=== PATIENT | male | born 1935 | race Caucasian/White ===

== ENCOUNTER → 2018-05-20 13:12 | Outpatient (CLI) | payer OTHER, SELFPAY ==
[2018-05-20 14:09] LABS: Add Manual Diff / Slide Review NO; Basophils Percent Auto 0.9 % (0-2); Hemoglobin 13.6 g/dL (13.5-17.5); Lymphocytes Percent Auto 32.6 % (25-40); Mean Corpuscular HGB Conc 34.1 % (30-36); Mean Corpuscular Hemoglobin 33.4 PG (26-34); Mean Corpuscular Volume 97.8 fL (80-100); Monocytes Percent Auto 8.1 % (3-14); Neutrophils Absolute Auto 2400 /uL (3000-5900); Neutrophils Percent Auto 55.4 % (50-75); Platelet Count 276 X10^3/uL (150-400); Red Blood Cell Count 4.09 X10^6/uL (4.5-5.9); Red Cell Distribution Width 13.9 % (11.6-14.8); White Blood Cell Count 4.4 X10^3/uL (4.5-11.0)
[2018-05-20 14:54] LABS: BUN Creatinine Ratio 17.8 (6-22); Blood Urea Nitrogen 16 mg/dL (9-20); Calcium 9.9 mg/dL (8.4-10.2); Carbon Dioxide 29 mmol/L (22-32); Chloride 95 mmol/L (98-107); Estimated Glomerular Filt Rate > 60.0 mL/min (>60); Glucose 96 mg/dL (80-110); HEMOLYSIS < 15 (0-50); Potassium 3.9 mmol/L (3.4-5.1); Sodium 135 mmol/L (137-145)
== END ==
PROVIDERS: Visit Provider Family Medicine
DX: D47.2 Monoclonal gammopathy (principal); I10 Essential (primary) hypertension
CPT/HCPCS: 80048; 85025

== ENCOUNTER → 2018-07-21 12:26 | Oncology outpatient (ONC) | payer OTHER, SELFPAY ==
[2018-07-21 13:34] VITALS: BP 151/64; PULSE 70; RESP 18; TEMP 36.6; O2SAT 97
--- NOTE | 2018-07-21 13:56 | ONC.CONS ---
History of Present Illness - Data of Consult Patient: new to practice Consult date: 07/21/18 Requesting Physician: Naomi Santo MD Primary Care Provider: Naomi Santo MD - Consult Narrative Reason for consult: MGUS Narrative: Mrs. Swathi Caldwell is an 83-year-old female. 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 About in March of 2015 patient complained of clavicle pain. A complete bone survey was performed on 03/19/2015 and there were no lytic lesions identified except degenerative changes in the cervical, thoracic, and lumbar spine. Patient recalled that she underwent bone marrow aspiration and biopsy, and ?was completely normal.? Thereafter patient has been undergoing regular laboratory tests and never has been diagnosed with multiple myeloma. On , SPEP showed M-spike of 0.11 g/dl. On 02/12/2017 SPEP showed no M-spikes. On 07/16/2017 M-spike 0.1 g/dl, and was identified as IgG [place]. In 2018, the patient moved to [facility] to take care of her sister. She was seen by oncodlogist Calvin Jimenes. On 11/30/2017, repeat SPEP showed M-spike of 0.1 g/dl. On 11/30/2017, the patient underwent bone survey. Of note it is not compared with any prior bone survey. The survey showed calvarial osteolytic lesions suggesting multiple myeloma or variant, severe degenerative changes of the cervical, thoracic and lumbar segments of the spine, severe osteoarthritis of both wrists and heavy atherosclerotic calcification of the thoracic aorta. On 12/13/2017, she underwent BMA/Bx which showed no morphologic or immunohistochemical evidence of involvement by lymphoma or a plasma cell neoplasm. It was reported as a normal cellular bone marrow with trilineage hematopoiesis. On 01/05/2018, she underwent PET scan which was interpreted as normal. The skull lytic lesions on whole-body x-ray survey was not picked up by the PET/CT. Clinically patient reports that 60% of the time, she feels very good. However sometimes she does feel abnormally tired with some bone aches. She is using ibuprofen. Patient denies any chest pain or shortness of breath, denies any abdominal pain diarrhea or constipation. Patient reports pain?: Yes Home Medications and Allergies Home Medications Medication Instructions Recorded Confirmed Type estradiol 0.5 mg tablet 0.5 mg PO DAILY 05/09/18 05/09/18 History fluocinonide 0.05 % topical cream 1 applictn TOP BID 05/09/18 05/09/18 History fluticasone 50 mcg/actuation nasal 2 spray NASAL DAILY 05/09/18 05/09/18 History spray,suspension hydrochlorothiazide 25 mg tablet 25 mg PO DAILY 05/09/18 05/09/18 History lisinopril 10 mg tablet 10 mg PO DAILY 05/09/18 05/09/18 History trospium ER 60 mg capsule,extended 60 mg PO QAM #90 cap 06/21/18 Rx release 24 hr imipramine 10 mg tablet 10 mg PO DAILY #90 tab 07/07/18 Rx levothyroxine 75 mcg tablet 75 mcg PO DAILY #90 tab 07/18/18 Rx Allergies Allergy/AdvReac Type Severity Reaction Status Date / Time Sulfa (Sulfonamide AdvReac Mild hives Verified 05/09/18 10:04 Antibiotics) opiods AdvReac Mild itching Uncoded 05/09/18 10:05 Medical History - Medical, Surgical, Family History Medical History: Medical History (Last Updated 05/11/18 @ 13:45 by Naomi Snato MD) Aortic calcification (Chronic) DNR (do not resuscitate) (Chronic) Vitiligo (Inactive) Urinary incontinence (Chronic) Essential hypertension (Chronic) 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 Surgical History: Surgical History (Last Updated 05/11/18 @ 13:45 by Naomi Santo MD) S/P partial thyroidectomy - Social History Smoking Status: Former smoker Review of Systems - Patient Self-Reported Symptoms SR Constitution: Fatigue/Malaise SR Musculoskeletal issues: Joint pain or swelling, Muscle pain or cramps, Back or neck pain, Bone pain All systems PM: reviewed and no additional remarkable complaints except as stated Exam Vital signs: Temp 97.9 F 07/21/18 13:34 Pulse 70 07/21/18 13:34 Resp 18 07/21/18 13:34 BP 151/64 H 07/21/18 13:34 Pulse Ox 97 07/21/18 13:34 ECOG 1 Narrative: Constitutional: Well developed, well nourished, not in any acute respiratory distress, average body habitus, well groomed, pleasant and cooperative. HEENT: Normocephalic atraumatic. Extraocular muscle movement intact. Pupils are round, equal and reactive to light and accommodations. Anicteric sclera. No hearing difficulty; Oral mucus membrane moist and without ulcers. Neck: Supple, symmetrical, and tracheal midline; No palpable thyromegaly and no palpable lymph nodes. Respiratory: No use of accessory muscles. Clear to auscultation, and no wheezes or rales or rubs. Cardiovascular: Regular rate and rhythm, S1 and S2 normal, no murmurs gallops or rubs. No JVD. No pitting edema of lower extremities. Abdomen: Soft, nontender, non-distended, bowel sounds normal, no palpable organomegaly, no hernia, no palpable masses. Lower extremities: No palpable pedal edema. Lymphatic: no palpable lymph nodes in the neck, axillae, or groins. Musculoskeletal: normal gait and station, no clubbing, no cyanosis, no pitting edema. Skin: no rashes, no ulcers, no petechiae Neurological: Awake and alert and oriented x3. CN II-XII grossly intact. No focal motor or sensory deficit. Psychiatric: Good judgment, good insight, normal affect, normal thought process, cooperative, no depression, no anxiety. Results - Labs None for review. Assessment and Plan (1) MGUS (monoclonal gammopathy of unknown significance) Patient has a very low level serum monoclonal protein IgG kappa. At times the M-spike level was below detection limit. Her recent bone marrow aspiration biopsy on 12/13/2017 was completely normal. No evidence of hypercalcemia or serum creatinine changes or anemia etc. I will continue current active surveillance. The most recent lab results was about 3 months ago. I will repeat the CBC CMP and multiple myeloma panel in 3 months. We will see the patient after the blood work.
--- NOTE | 2018-07-21 13:59 | P.CONONC_ITS ---
History of Present Illness - Data of Consult Patient: new to practice Consult date: 07/21/18 Requesting Physician: Naomi Santo MD Primary Care Provider: Naomi Santo MD - Consult Narrative Reason for consult: MGUS Narrative: Mrs. Swathi Caldwell is an 83-year-old female. 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 About in March of 2015 patient complained of clavicle pain. A complete bone survey was performed on 03/19/2015 and there were no lytic lesions identified except degenerative changes in the cervical, thoracic, and lumbar spine. Patient recalled that she underwent bone marrow aspiration and biopsy, and ?was completely normal.? Thereafter patient has been undergoing regular laboratory tests and never has been diagnosed with multiple myeloma. On , SPEP showed M-spike of 0.11 g/dl. On 02/12/2017 SPEP showed no M- spikes. On 07/16/2017 M-spike 0.1 g/dl, and was identified as IgG [place]. In 2018, the patient moved to [facility] to take care of her sister. She was seen by oncodlogist Calvin Jimenes. On 11/30/2017, repeat SPEP showed M-spike of 0.1 g/dl. On 11/30/2017, the patient underwent bone survey. Of note it is not compared with any prior bone survey. The survey showed calvarial osteolytic lesions suggesting multiple myeloma or variant, severe degenerative changes of the cervical, thoracic and lumbar segments of the spine , severe osteoarthritis of both wrists and heavy atherosclerotic calcification of the thoracic aorta. On 12/13/2017, she underwent BMA/Bx which showed no morphologic or immunohistochemical evidence of involvement by lymphoma or a plasma cell neoplasm. It was reported as a normal cellular bone marrow with trilineage hematopoiesis. On 01/05/2018, she underwent PET scan which was interpreted as normal. The skull lytic lesions on whole-body x-ray survey was not picked up by the PET/CT. Clinically patient reports that 60% of the time, she feels very good. However sometimes she does feel abnormally tired with some bone aches. She is using ibuprofen. Patient denies any chest pain or shortness of breath, denies any abdominal pain diarrhea or constipation. Patient reports pain?: Yes Home Medications and Allergies Home Medications Medication Instructions Recorded Confirmed Type estradiol 0.5 mg tablet 0.5 mg PO DAILY 05/09/18 05/09/18 History fluocinonide 0.05 % topical cream 1 applictn TOP BID 05/09/18 05/09/18 History fluticasone 50 mcg/actuation nasal 2 spray NASAL DAILY 05/09/18 05/09/18 History spray,suspension hydrochlorothiazide 25 mg tablet 25 mg PO DAILY 05/09/18 05/09/18 History lisinopril 10 mg tablet 10 mg PO DAILY 05/09/18 05/09/18 History trospium ER 60 mg capsule,extended 60 mg PO QAM #90 cap 06/21/18 Rx release 24 hr imipramine 10 mg tablet 10 mg PO DAILY #90 tab 07/07/18 Rx levothyroxine 75 mcg tablet 75 mcg PO DAILY #90 tab 07/18/18 Rx Allergies Allergy/AdvReac Type Severity Reaction Status Date / Time Sulfa (Sulfonamide AdvReac Mild hives Verified 05/09/18 10:04 Antibiotics) opiods AdvReac Mild itching Uncoded 05/09/18 10:05 Medical History - Medical, Surgical, Family History Medical History: Medical History (Last Updated 05/11/18 @ 13:45 by Naomi Santo MD) Aortic calcification (Chronic) DNR (do not resuscitate) (Chronic) Vitiligo (Inactive) Urinary incontinence (Chronic) Essential hypertension (Chronic) 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 Surgical History: Surgical History (Last Updated 05/11/18 @ 13:45 by Naomi Santo MD) S/P partial thyroidectomy - Social History Smoking Status: Former smoker Review of Systems - Patient Self-Reported Symptoms SR Constitution: Fatigue/Malaise SR Musculoskeletal issues: Joint pain or swelling, Muscle pain or cramps, Back or neck pain, Bone pain All systems PM: reviewed and no additional remarkable complaints except as stated Exam Vital signs: 3 Temp 97.9 F 07/21/18 13:34 Pulse 70 07/21/18 13:34 Resp 18 07/21/18 13:34 BP 151/64 H 07/21/18 13:34 Pulse Ox 97 07/21/18 13:34 ECOG 1 Narrative: Constitutional: Well developed, well nourished, not in any acute respiratory distress, average body habitus, well groomed, pleasant and cooperative. HEENT: Normocephalic atraumatic. Extraocular muscle movement intact. Pupils are round, equal and reactive to light and accommodations. Anicteric sclera. No hearing difficulty; Oral mucus membrane moist and without ulcers. Neck: Supple, symmetrical, and tracheal midline; No palpable thyromegaly and no palpable lymph nodes. Respiratory: No use of accessory muscles. Clear to auscultation, and no wheezes or rales or rubs. Cardiovascular: Regular rate and rhythm, S1 and S2 normal, no murmurs gallops or rubs. No JVD. No pitting edema of lower extremities. Abdomen: Soft, nontender, non-distended, bowel sounds normal, no palpable organomegaly, no hernia, no palpable masses. Lower extremities: No palpable pedal edema. Lymphatic: no palpable lymph nodes in the neck, axillae, or groins. Musculoskeletal: normal gait and station, no clubbing, no cyanosis, no pitting edema. Skin: no rashes, no ulcers, no petechiae Neurological: Awake and alert and oriented x3. CN II-XII grossly intact. No focal motor or sensory deficit. Psychiatric: Good judgment, good insight, normal affect, normal thought process , cooperative, no depression, no anxiety. Results - Labs None for review. Assessment and Plan (1) MGUS (monoclonal gammopathy of unknown significance) Patient has a very low level serum monoclonal protein IgG kappa. At times the M -spike level was below detection limit. Her recent bone marrow aspiration biopsy on 12/13/2017 was completely normal. No evidence of hypercalcemia or serum creatinine changes or anemia etc. I will continue current active surveillance. The most recent lab results was about 3 months ago. I will repeat the CBC CMP and multiple myeloma panel in 3 months. We will see the patient after the blood work.
--- NOTE | 2018-07-22 14:18 | ONC.NAV ---
Late Entry: Visit 07/21/18 Description: New Pt Intro Activity: Met with pt prior to her new pt consult visit with Dr. Grullon. Pt is being seen to establish hematology care, and had been previously monitored for her blood disorder in [place]. She presents as very spy and engaging, and feels that overall, things are going well for her right now. [employer] provided the navigation services card, and encouraged patient to reach out should she have any needs in the future. No interventions or needs identified at this time.
== END ==
PROVIDERS: PCP Family Medicine; Visit Provider Internal Medicine Hematology & Oncology
DX: D47.2 Monoclonal gammopathy (principal)
CPT/HCPCS: 99204; 99214